=== PATIENT | female | born 1960 | race Two or more races ===

== ENCOUNTER 2019-09-04 05:33 | Inpatient (IN) | payer OTHER ==
--- NOTE | 2019-09-02 11:17 | Diagnostic Imaging Report ---
Indication: Cough Technique: 2 views of the chest Comparison: None Findings: Lungs and pleural spaces are clear. The heart size is normal. Impression: Negative
[~2019-09-04] VITALS: Ht 165.1 cm; Wt 78.9 kg
[2019-09-04] VITALS (16 sets, daily range): BP systolic 102–128; BP diastolic 56–78
[2019-09-04] MEDS ORDERED: ceFAZolin sod 2 GM in NS 55 ML IVPB ONE (07:00)
[2019-09-04] MEDS ORDERED: cefOXitin 1gm Inj ONE (07:01)
[2019-09-04] MEDS ORDERED: Succinylcholine 20mg/ml 10ml vial ONE (07:01)
[2019-09-04] MEDS ORDERED: Rocuronium Bromide 100mg/10ml Inj IV ONE (07:01)
[2019-09-04] MEDS ORDERED: fentaNYL 100 mcg/2 mL IV ONE (07:07)
[2019-09-04] MEDS ORDERED: Midazolam 2mg/2ml Inj ONE (07:07)
[2019-09-04] MEDS ORDERED: Lidocaine 1% MPF 10mg/ml 5ml ONE (07:11)
[2019-09-04] MEDS ORDERED: Bupivacaine w/Epi 0.5% 30ml Vial INJ ONE (07:15)
[2019-09-04] MEDS ORDERED: ProvayBlue 5mg/ml 10ml amp INJ ONE (07:15)
[2019-09-04] MEDS ORDERED: Sterile Water Irrig 1000ml IRRIG ONE (07:30)
[2019-09-04] MEDS ORDERED: LR 1000ml ONE (07:30)
[2019-09-04] MEDS ORDERED: NS Irrig 1000ml ONE (07:30)
[2019-09-04] MEDS ORDERED: Neostigmine 1mg/ml 10ml Inj ONE (07:30)
--- NOTE | 2019-09-04 07:42 | Pre-Procedure Note/Attestation ---
Pre-Procedure Note/Attestation Complete Prior to Procedure Planned Procedure: not applicable Procedure Narrative: vaginal hysterectomy possible anterior posterior repair possible bilateral salpingectomies Indications for Procedure Pre-Operative Diagnosis: uterine prolapse Attestation I attest that I discussed the nature of the procedure; its benefits; risks and complications; and alternatives (and the risks and benefits of such alternatives ), prior to the procedure, with the patient (or the patient's legal malt liquors sales representative). I attest that, if there was a reasonable possibility of needing a blood transfusion, the patient (or the patient's legal malt liquors sales representative) was given the [facility] standardized written summary, pursuant to the [place]omi [place] Blood Safety Act ([place] Health and Safety Code # 1645, as amended). I attest that I re-evaluated the patient just prior to the surgery and that there has been no change in the patient's H&P, except as documented below: Neema Henson MD Sep 04, 2019 07:42
--- NOTE | 2019-09-04 08:21 | Anethesia Preoperative Eval ---
Anesthesia Pre-op PMH/ROS General Date of Evaluation: Sep 04, 2019 Time of Evaluation: 07:10 Anesthesiologist: Bethanie ASA Score: ASA 2 Mallampati Score Class I : Soft palate, uvula, fauces, pillars visible Class II: Soft palate, uvula, fauces visible Class III: Soft palate, base of uvula visible Class IV: Only hard plate visible Mallampati Classification: Class II Surgeon: Sixto Diagnosis: Uterine prolaps Surgical Procedure: Vaginal hysterectomy Anesthesia History: none Family History: no anesthesia problems Allergies: Coded Allergies: No Known Allergies (Unverified , 09/04/19) Medications: see eMAR Patient NPO?: Yes Past Medical History Cardiovascular: Denies: HTN, CAD, ND, valve dz, arrhythmia, other Pulmonary: Denies: asthma, COPD, CARSON, other Gastrointestinal/Genitourinary: Reports: GERD - mild; Denies: CRI, ESRD, other Neurologic/Psychiatric: Denies: dementia, CVA, depression/anxiety, TIA, other Endocrine: Denies: DM, hypothyroidism, steroids, other HEENT: Denies: cataract (L), cataract (R), glaucoma, [place] (L), [place] (R), other Hematology/Immune: Denies: anemia, DVT, bleeding disorder, other Musculoskeletal/Integumentary: Denies: OA, RA, DJD, DDD, edema, other PMH Narrative: as above PSxH Narrative: None Anesthesia Pre-op Phys. Exam Physician Exam Last Vital Signs Date Time Temp Pulse Resp B/P (MAP) Pulse Ox O2 Delivery O2 Flow Rate FiO2 09/04/19 06:10 Room Air 09/04/19 05:59 97.5 62 18 128/78 (95) 97 Constitutional: NAD Neurologic: CN 2-12 intact Cardiovascular: RRR, no M/R/G Respiratory: CTA Gastrointestinal: S/NT/ND Airway Exam Mallampati Score: Class II MO: full Neck: flexible ROM: full Teeth: intact Dentures: no upper, no lower Anesthesia Pre-op A/P Labs see chart Studies Pre-op Studies: EKG - NSR Risk Assessment & Plan Assessment: ASA 2 Plan: GA with ETT Status Change Before Surgery: No Pre-Antibiotics Drug: Cefoxitin 1gr. Given Within 1 Hr of Incision: Yes Time Given: 08:12 Tomy Kovacs MD Sep 04, 2019 08:21
[2019-09-04] MEDS ORDERED: LR 1000ml 1,000 ML IVLG SCH (08:23)
[2019-09-04] MEDS ORDERED: Sodium Chloride 10ml vial INJ ONE (08:26)
[2019-09-04] MEDS ORDERED: ePHEDrine 50mg/ml Inj ONE (08:26)
[2019-09-04] MEDS ORDERED: Morphine Sulfate 10mg/ml Inj ONE (08:30)
[2019-09-04] MEDS ORDERED: DiphenhydrAMINE 50mg/ml Inj IVP PRN ×2 (08:30→14:30)
[2019-09-04] MEDS ORDERED: Ketorolac 30mg Inj IV PRN ×2 (08:30→14:30)
[2019-09-04] MEDS ORDERED: Acetaminophen (Non formulary) 100 ML IV ONE (08:30)
[2019-09-04] MEDS ORDERED: Metoclopramide 10mg/2ml Inj IVP PRN ×2 (08:30→14:30)
[2019-09-04] MEDS ORDERED: Hydromorphone 0.5mg/0.5ml inj IVP PRN (08:30)
[2019-09-04] MEDS ORDERED: Glycopyrrolate 0.2mg/ml 1ml Vial ONE (08:33)
--- NOTE | 2019-09-04 08:36 | 48 Hour Post Anesthesia Eval ---
Post Anesthesia Evaluation Procedure: Vag Hyst Date of Evaluation: Sep 04, 2019 Time of Evaluation: 14:11 Blood Pressure Systolic: 132 0: 79 Pulse Rate: 65 Respiratory Rate: 18 Temperature (Fahrenheit): 97.7 O2 Sat by Pulse Oximetry: 97 Airway: patent Nausea: No Vomiting: No Pain Intensity: 3 Hydration Status: adequate Cardiopulmonary Status: Stable Mental Status/LOC: patient returned to baseline Follow-up Care/Observations: 0 Post-Anesthesia Complications: 0 Follow-up care needed: N/A Jorge Herrera MD Sep 04, 2019 08:36
--- NOTE | 2019-09-04 10:04 | Brief Operative Note ---
Immediate Post Operative Note Operative Note Pre-op Diagnosis: uterovaginal prolapse/ anterior repair/ enterocele repair Procedure: vaginal hysterectomy, anterior repair, enterocele repair Post-op Diagnosis: same Surgeon: viola Route Delivery Supervisor: beverly Anesthesia: general Specimen: yes Complications: none Condition: stable Fluids: crystalloid Estimated Blood Loss: minimal Drains: none Implant(s) used?: No Neema Henson MD Sep 04, 2019 10:04
--- NOTE | 2019-09-04 10:23 | Immediate Post-Op Evaluation ---
Immediate Post-Op Evalulation Immediate Post-Op Evalulation Procedure: Vaginal hysterectomy anterior and posterior repair Date of Evaluation: Sep 04, 2019 Time of Evaluation: 10:22 IV Fluids: 1600 Blood Products: none Estimated Blood Loss: 100 Urinary Output: 300 Blood Pressure Systolic: 121 Blood Pressure Diastolic: 76 Pulse Rate: 68 Respiratory Rate: 18 O2 Sat by Pulse Oximetry: 99 Temperature (Fahrenheit): 97.6 Pain Score (1-10): 1 Nausea: No Vomiting: No Complications none Patient Status: reacts, patent, extubated, none Hydration Status: adequate Tomy Kovacs MD Sep 04, 2019 10:23
[2019-09-04] MEDS ORDERED: HYDROcodone/Acetamin 10/325 tab ORAL PRN (14:30)
[2019-09-04] MEDS ORDERED: HYDROcodone/Acetamin 5/325 tab ORAL PRN (14:30)
[2019-09-04] MEDS: D5 1/2NS w/KCl 20mEq 1,000 ML IV SCH ×2 (14:32→22:29)
[2019-09-04] MEDS ORDERED: ceFAZolin sod 1 GM in D5W 55 ML IV ONE (16:00)
[2019-09-04] MEDS: HYDROmorphone 1mg/ml Carpuject IVP PRN ×2 (16:01→22:29)
[2019-09-04] MEDS: Docusate 100mg cap ORAL SCH (17:33)
[2019-09-05] VITALS: BP 92/49
[2019-09-05 04:00] VITALS: BP 109/62
[2019-09-05] MEDS: D5 1/2NS w/KCl 20mEq 1,000 ML IV SCH ×3 (05:55→21:59)
[2019-09-05 06:02] LABS: EOSINOPHILS % (AUTO) 0.2 % (0.0-3.0); HEMATOCRIT 36.9 % (37.0-47.0); HEMOGLOBIN 12.2 G/DL (12.0-16.0); LYMPHOCYTES % (AUTO) 10.2 % (20.0-45.0); MEAN CORPUSCULAR VOLUME 94 FL (80-99); MONOCYTES % (AUTO) 10.6 % (1.0-10.0); NEUTROPHILS % (AUTO) 78.1 % (45.0-75.0); PLATELET COUNT 168 K/UL (150-450); RED BLOOD COUNT 3.95 M/UL (4.20-5.40); RED CELL DISTRIBUTION WIDTH 11.3 % (11.6-14.8); WHITE BLOOD COUNT 12.5 K/UL (4.8-10.8)
[2019-09-05 06:06] LABS: ANION GAP 8 mmol/L (5-15); BLOOD UREA NITROGEN 7 mg/dL (7-18); CALCIUM 7.8 MG/DL (8.5-10.1); CARBON DIOXIDE 26 MMOL/L (21-32); CHLORIDE 105 MMOL/L (98-107); CREATININE 0.9 MG/DL (0.55-1.30); POTASSIUM 4.4 MMOL/L (3.5-5.1); SODIUM 139 MMOL/L (136-145)
[2019-09-05 08:00] VITALS: BP 114/62
[2019-09-05] MEDS: Docusate 100mg cap ORAL SCH ×2 (09:18→17:23)
--- NOTE | 2019-09-05 11:05 | General Surgery Progress Note ---
General Surgery-Progress Note Subjective Procedure Performed vaginal hysterectomy, anterior repair, enterocele repair Symptoms: pain increased, not tolerating diet, difficulty voiding Objective Last 24 Hour Vital Signs Date Time Temp Pulse Resp B/P (MAP) Pulse Ox O2 Delivery O2 Flow Rate FiO2 09/05/19 09:00 Nasal Cannula 2.0 09/05/19 08:00 98.4 68 19 114/62 (79) 98 09/05/19 04:00 98.0 66 19 109/62 (78) 98 09/05/19 00:00 98.4 59 19 92/49 (63) 99 09/04/19 21:00 Nasal Cannula 2.0 09/04/19 20:00 97.2 62 19 102/56 (71) 95 09/04/19 16:00 98.7 70 16 109/63 (78) 98 09/04/19 14:30 97.9 63 16 109/61 (77) 96 09/04/19 13:30 98.1 77 16 124/64 (84) 99 09/04/19 12:30 97.7 56 16 110/64 (79) 99 09/04/19 12:00 97.0 57 16 107/66 (80) 99 09/04/19 11:45 Nasal Cannula 2.0 09/04/19 11:30 97.1 66 16 111/66 (81) 99 09/04/19 11:25 97.8 53 16 113/66 100 Nasal Cannula 3 09/04/19 11:17 97.8 09/04/19 11:15 55 13 113/63 100 Nasal Cannula 3 I&O Intake and Output 09/04/19 09/05/19 19:00 07:00 Intake Total 2980 ml 1795 ml Output Total 800 ml 700 ml Balance 2180 ml 1095 ml Intake Oral 400 ml 420 ml IV Total 2580 ml 1375 ml Output Urine Total 700 ml 700 ml Estimated Blood Loss 100 ml Drains: none Cardiovascular: RSR Respiratory: clear Abdomen: soft, present bowel sounds, non-distended Extremities: no edema, no tenderness, no cyanosis Laboratory Tests Test 09/05/19 05:25 White Blood Count 12.5 K/UL (4.8-10.8) H Red Blood Count 3.95 M/UL (4.20-5.40) L Hemoglobin 12.2 G/DL (12.0-16.0) Hematocrit 36.9 % (37.0-47.0) L Mean Corpuscular Volume 94 FL (80-99) Mean Corpuscular Hemoglobin 30.9 PG (27.0-31.0) Mean Corpuscular Hemoglobin Concent 33.1 G/DL (32.0-36.0) Red Cell Distribution Width 11.3 % (11.6-14.8) L Platelet Count 168 K/UL (150-450) Mean Platelet Volume 10.7 FL (6.5-10.1) H Neutrophils (%) (Auto) 78.1 % (45.0-75.0) H Lymphocytes (%) (Auto) 10.2 % (20.0-45.0) L Monocytes (%) (Auto) 10.6 % (1.0-10.0) H Eosinophils (%) (Auto) 0.2 % (0.0-3.0) Basophils (%) (Auto) 1.0 % (0.0-2.0) Sodium Level 139 MMOL/L (136-145) Potassium Level 4.4 MMOL/L (3.5-5.1) Chloride Level 105 MMOL/L (98-107) Carbon Dioxide Level 26 MMOL/L (21-32) Anion Gap 8 mmol/L (5-15) Blood Urea Nitrogen 7 mg/dL (7-18) Creatinine 0.9 MG/DL (0.55-1.30) Estimat Glomerular Filtration Rate > 60 mL/min (>60) Glucose Level 158 MG/DL (74-106) H Calcium Level 7.8 MG/DL (8.5-10.1) L Assessment Post-op Diagnosis same Plan Additional Comments s/p vag hyst/ in p[ain and nausea/ vomiting from narcotic-- toradol suhail/ and ambulate if able to tolerate oral meds d/c today later in day otherwise tomorrow Neema Henson MD Sep 05, 2019 11:05
[2019-09-05 12:00] VITALS: BP 135/68
[2019-09-05] MEDS: Ketorolac 30mg Inj IV SCH ×3 (12:40→23:36)
[2019-09-05 16:00] VITALS: BP 114/64
[2019-09-05 20:00] VITALS: BP 95/58
[2019-09-06] VITALS: BP 115/65
[2019-09-06 04:00] VITALS: BP 113/70
[2019-09-06] MEDS: D5 1/2NS w/KCl 20mEq 1,000 ML IV SCH (05:28)
[2019-09-06] MEDS: Ketorolac 30mg Inj IV SCH (05:28)
[2019-09-06 08:00] VITALS: BP 120/80
[2019-09-06] MEDS: Docusate 100mg cap ORAL SCH (09:08)
[2019-09-06 12:00] VITALS: BP 126/81
[2019-09-06] MEDS ORDERED: IBUPROFEN600 M1 ORAL (13:21)
[2019-09-06] MEDS ORDERED: ZOFRAN ODT8 MG ORAL (13:22)
[2019-09-06] MEDS ORDERED: NORCO 5-325 TA1 EAC1 ORAL (13:23)
--- NOTE | 2019-09-07 00:45 | Operative Note - Dictated ---
DATE OF OPERATION: 09/05/2019 PREOPERATIVE DIAGNOSES: Uterovaginal prolapse, enterocele, cystocele. POSTOPERATIVE DIAGNOSES: Uterovaginal prolapse, enterocele, cystocele. PROCEDURE: Vaginal hysterectomy, anterior repair, enterocele repair. SURGEON: Neema Henson MD. EXECUTIVE COORDINATOR: Dolly Hall MD. ESTIMATED BLOOD LOSS: Minimal. ANESTHESIOLOGIST: Dr. Kovacs. ANESTHESIA: General endotracheal. URINE OUTPUT: 300 mL clear urine at the end of the case. PROCEDURE IN DETAIL: After ensuring informed consent, patient was taken to the operating suite where general anesthesia was induced. Patient was sterilely prepped and draped. Legs were placed in Pepe stirrups. Patient was sterilely prepped and draped. Bladder was emptied of urine with a catheter. Next, cervix was injected with a dilute solution of Pitressin namely 20 units and 50 mL. Next, a circumferential incision was made into the cervix and vaginal mucosa was pushed off using a Ray-Jay Jay. Next, posterior cul-de-sac was entered and a weighted duckbill speculum was placed. Next, uterosacral was grasped with a Elijah clamp, cut, suture ligated. Procedure was repeated on the left side. After this, the anterior vesicouterine reflection was dissected, but anterior peritoneum was not entered yet. Next, Elijah clamps were used along the cardinal ligament to grasp, cut, and suture ligate. Again, anteriorly resection took place until the vesicouterine peritoneum was entered and a Jamel retractor was placed. Next, uterine arteries bilaterally were grasped with Elijah's clamp and suture ligated. Next, another couple of bites were taken along the and both sides and ligated with 0 Vicryl. At this point, the uterine fundus was exteriorized into the incision posteriorly and the remaining uteroovarian ligaments were grasped with a Elijah clamp and suture ligated. In fact, the large utero-ovarian ligaments were ligated with 2 free ties and then the sutures tied bilaterally. At this point, uterus was completely amputated. Next, all the pedicles were inspected. Excellent hemostasis was assured. Attention was turned to the enterocele where a Martel culdoplasty was performed obliterating the posterior cul-de-sac and peritoneum was closed with 2-0 Vicryl as well as the culdoplasty was also performed with 2-0 Vicryl. Next, attention was turned to the anterior vagina where mucosa was undermined after infiltration with local anesthetic with epinephrine. Next, the bladder was dissected off of the overlying vaginal mucosa until the cystocele of the bladder was revealed. Next, the vaginal mucosa was trimmed bilaterally. Next, bladder was reduced and July plication was performed with 2-0 Prolene. The cystocele was reduced by plicating the pubovesical fascia with 2-0 Vicryl x2 sutures. The vaginal cuff was closed with 0 Vicryl. Excellent hemostasis was assured. Vaginal packing soaked in a dilute solution of iodine was used and Melendez catheter was placed. At the end of the procedure, all instruments and lap counts were correct x2. Patient was taken to the recovery area and extubated in stable condition. Neema Henson M.D. DR: ANNIE JOB#: [id number] CC:
[2019-09-07] MEDS ORDERED: Ketorolac 30mg Inj IV SCH (14:00)
--- NOTE | 2019-09-15 10:52 | Discharge Summary ---
Discharge Summary Discharge Summary _ DATE OF ADMISSION: 09/04/2019 DATE OF DISCHARGE: 09/06/2019 DISCHARGED BY: Dr. Jarvis Henson BRIEF HOSPITAL COURSE: Patient is a 58-year-old female with uterine prolapse, was admitted for vaginal hysterectomy. She underwent outpatient surgical clearance. She was admitted on 09/04/2019. She underwent vaginal hysterectomy, anterior repair and enterocele repair. She tolerated procedure well. Postoperatively, she had difficulty voiding. She had increased pain and was not tolerating diet. She was vomiting and was nauseated. She was kept in the hospital for further observation. She was encouraged ambulation. Eventually she had better pain control and was able to tolerate oral medications. She was eventually discharged home. FINAL DIAGNOSES: Uterovaginal prolapse, enterocele, cystocele Status post vaginal hysterectomy, anterior repair, enterocele repair. DISPOSITION: Patient was discharged home. DISCHARGE MEDICATIONS: Refer to Discharge Medication List. DISCHARGE INSTRUCTIONS: Follow-up in a week. I have been assigned to complete a discharge summary on this account, I was not involved with the patient's management.--CHANEL Chilel Jacqueline Robles NP Sep 15, 2019 10:52
== END 2019-09-06 15:05 | disposition home or self-care (01) | DRG 743 ==
LOC: SUR 05:33 → OBSVTOIN 09:19 → 3E 09:19 → INTOOBSV 09:19 → 3E 16:43
PROC: 0UQF7ZZ Repair Cul-de-sac, Via Natural or Artificial Opening (ICD-10-PCS; principal; 2019-09-05)
PROC: 0UT97ZZ Resection of Uterus, Via Natural or Artificial Opening (ICD-10-PCS; principal; 2019-09-05)
PROC: 0JQC0ZZ Repair Pelvic Region Subcutaneous Tissue and Fascia, Open Approach (ICD-10-PCS; principal; 2019-09-05)
DX: N81.4 Uterovaginal prolapse, unspecified (principal)
CPT/HCPCS: 36415; 71046; 80048; 85025; 86850; 86900; 86901; 87081; 94003; 94150; 96360; 96361; 96374; J2250; J2405; J2710